=== PATIENT | female | born 1990 | race American Indian/Alaskan Native ===

== ENCOUNTER 2019-01-12 13:58 | Emergency (ER) | payer OTHER ==
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
[2019-01-12] MEDS ORDERED: ACETAMINOPHEN 325 MG TAB PO ONE (14:28)
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
--- NOTE | 2019-01-12 17:54 | XRay Report ---
LEFT SHOULDER 3 VIEWS INDICATION: let shoulder pain. COMPARISON: No relevant prior imaging study available. FINDINGS: There is no significant skeletal abnormality. No soft tissue swelling or foreign bodies. IMPRESSION: 1. No acute findings. Signer Name: Nick Epps MD Signed: 01/12/2019 5:49 PM Workstation Name: [id number]
[2019-01-12 18:29] VITALS: BP 110/71
== END 2019-01-12 18:28 | disposition home or self-care (01) ==
LOC: ED 13:58
DX: S46.912A Strain of unspecified muscle, fascia and tendon at shoulder and upper arm level, left arm, initial encounter (principal); Z79.899 Other long term (current) drug therapy; V49.59XA Passenger injured in collision with other motor vehicles in traffic accident, initial encounter; Y93.89 Activity, other specified; Y92.410 Unspecified street and highway as the place of occurrence of the external cause; Y99.8 Other external cause status